=== PATIENT | male | born 1980 | race Two or more races ===

== ENCOUNTER 2018-06-10 09:41 | Emergency (ER) | payer SELFPAY ==
[~2018-06-10] VITALS: Ht 180.3 cm; Wt 88.0 kg
[2018-06-10 09:44] VITALS: Ht 180.3 cm; Wt 88.0 kg
[2018-06-10 10:49] LABS: BASOPHIL % 0.3 % (0-2); PLATELET COUNT 238 x10^3mcL (130-400); RED CELL DISTRIBUTION WIDTH 13.3 % (11.5-14.5)
[2018-06-10 11:08] LABS: CARBON DIOXIDE 30.8 mmol/L (21-32); CREATININE SERUM 1.6 mg/dL (0.7-1.3); POTASSIUM SERUM 4.3 mmol/L (3.5-5.1)
[2018-06-10 11:48] LABS: CALCIUM 8.4 mg/dL (8.5-10.1)
[2018-06-10 12:05] VITALS: BP 142/84
== END 2018-06-10 12:05 | disposition home or self-care (01) ==
LOC: ED 09:41
PROVIDERS: Emergency Medicine
DX: R51 Headache (principal); I10 Essential (primary) hypertension; N28.9 Disorder of kidney and ureter, unspecified
CPT/HCPCS: J0780; J7030; Q0162